=== PATIENT | male | born 1955 | race Caucasian/White ===

== ENCOUNTER 2018-02-03 17:10 | Inpatient (IN) | payer OTHER ==
[2018-02-03] MEDS ORDERED: NACL 0.9% 3 ML SYG IV (19:30)
[2018-02-03] MEDS ORDERED: ONDANSETRON 4 MG INJ IV (19:30)
[2018-02-03] MEDS ORDERED: GLUCOSE GEL 15 GRAM TUBE BUCCAL (20:30)
[2018-02-03] MEDS ORDERED: GLUCOSE GEL 15 GRAM TUBE PO ×2 (20:30)
[2018-02-03] MEDS ORDERED: DEXTROSE 50% 50 ML SYRINGE IV ×2 (20:30)
[2018-02-03] MEDS ORDERED: GLUCAGON 1 MG INJ IM (20:30)
[2018-02-03] MEDS: HYDROCODONE/APAP (5/325) TAB PO (20:39)
[2018-02-03] MEDS: FUROSEMIDE 40 MG INJ IV (20:40)
[2018-02-03] MEDS: INSULIN ASPART [NOVOLOG] 3 ML PEN SC (21:00)
[2018-02-03] MEDS: APIXABAN 5 MG TABLET PO (21:30)
[2018-02-03] MEDS: METOPROLOL 50 MG TAB PO (21:30)
[2018-02-03] MEDS: ATORVASTATIN 80 MG TAB PO (21:30)
[2018-02-03 22:35] LABS: ADD MAN DIFF? NO
[2018-02-03 22:38] LABS: BASOPHIL # 0.1 10^3/ul (0.0-0.1); BASOPHILS % 0.6 % (0.0-2.0); EOSINOPHILS # 0.3 10^3/ul (0.0-0.5); HEMATOCRIT 39.8 % (42.0-52.0); HEMOGLOBIN 13.6 g/dl (14.0-18.0); LYMPHOCYTES # 1.2 10^3/ul (0.8-2.9); LYMPHOCYTES % 8.3 % (15.0-51.0); MEAN CORPUSCULAR HEMOGLOBIN 31.1 pg (29.0-33.0); MEAN CORPUSCULAR HGB CONC 34.2 g/dl (32.0-37.0); MEAN CORPUSCULAR VOLUME 90.9 fl (82.0-101.0); MEAN PLATELET VOLUME 8.4 fl (7.4-10.4); MONOCYTES % 7.3 % (0.0-11.0); NEUTROPHIL # 11.4 10^3/ul (1.6-7.5); NEUTROPHILS % 80.8 % (39.0-77.0); PLATELET COUNT 288 10^3/UL (140-415); RED BLOOD COUNT 4.38 10^6/ul (4.70-6.10); RED CELL DISTRIBUTION WIDTH 13.6 % (11.5-14.5)
[2018-02-03 23:07] LABS: B-TYPE NATRIURETIC PEPTIDE 1110 PG/ML (0-125)
[2018-02-04 01:46] LABS: ALANINE AMINOTRANSFERASE 43 IU/L (13-69); ALBUMIN 3.5 g/dl (3.3-4.9); ALBUMIN/GLOBULIN RATIO 0.92; ALKALINE PHOSPHATASE 86 IU/L (42-121); ANION GAP 17 (8-16); ASPARTATE AMINO TRANSFERASE 28 IU/L (15-46); BILIRUBIN,INDIRECT 0.5 mg/dl (0-1.1); BILIRUBIN,TOTAL 0.5 mg/dl (0.2-1.3); BLOOD UREA NITROGEN 17 mg/dl (7-20); CALCIUM 9.4 mg/dl (8.4-10.2); CARBON DIOXIDE 28 mmol/L (21-31); CHLORIDE 91 mmol/L (97-110); CHOLESTEROL 124 mg/dl (100-200); CREATININE 0.99 mg/dl (0.61-1.24); GLUCOSE 125 mg/dl (70-220); HDL CHOLESTEROL 31 mg/dl (30-78); LDL CHOLESTEROL,CALCULATED 75 mg/dl; MAGNESIUM 1.8 mg/dl (1.7-2.5); PHOSPHORUS 4.2 mg/dl (2.5-4.9); SODIUM 132 mmol/L (135-144); TOTAL PROTEIN 7.3 g/dl (6.1-8.1); TRIGLYCERIDES 92 mg/dl (0-149)
[2018-02-04] MEDS: ACCU-CHEK XX (02:00)
[2018-02-04] MEDS: HYDROCODONE/APAP (5/325) TAB PO ×3 (02:43→16:16)
[2018-02-04] MEDS: FUROSEMIDE 40 MG INJ IV ×3 (04:17→21:12)
[2018-02-04] MEDS: PANTOPRAZOLE (EC) 40 MG TAB PO (05:42)
[2018-02-04] MEDS: ALBUTEROL/IPRATROPIUM (NEB) 3 ML AMP HHN ×2 (06:23→15:09)
[2018-02-04 07:21] LABS: ADD MAN DIFF? NO
[2018-02-04 07:25] LABS: WHITE BLOOD COUNT 11.4 10^3/ul (4.8-10.8)
[2018-02-04 07:25] LABS: BASOPHIL # 0.1 10^3/ul (0.0-0.1); EOSINOPHILS # 0.3 10^3/ul (0.0-0.5); EOSINOPHILS % 2.9 % (0.0-7.0); HEMATOCRIT 40.8 % (42.0-52.0); HEMOGLOBIN 13.7 g/dl (14.0-18.0); LYMPHOCYTES # 1.5 10^3/ul (0.8-2.9); LYMPHOCYTES % 13.2 % (15.0-51.0); MEAN CORPUSCULAR HEMOGLOBIN 30.6 pg (29.0-33.0); MEAN CORPUSCULAR HGB CONC 33.6 g/dl (32.0-37.0); MEAN CORPUSCULAR VOLUME 91.3 fl (82.0-101.0); MEAN PLATELET VOLUME 8.3 fl (7.4-10.4); MONOCYTES % 8.9 % (0.0-11.0); NEUTROPHIL # 8.4 10^3/ul (1.6-7.5); PLATELET COUNT 280 10^3/UL (140-415); RED BLOOD COUNT 4.47 10^6/ul (4.70-6.10); RED CELL DISTRIBUTION WIDTH 13.8 % (11.5-14.5)
[2018-02-04 07:49] LABS: ANION GAP 15 (8-16); BLOOD UREA NITROGEN 16 mg/dl (7-20); CALCIUM 9.4 mg/dl (8.4-10.2); CARBON DIOXIDE 29 mmol/L (21-31); CHLORIDE 92 mmol/L (97-110); CREATININE 0.99 mg/dl (0.61-1.24); GLUCOSE 112 mg/dl (70-220); MAGNESIUM 1.7 mg/dl (1.7-2.5); PHOSPHORUS 4.2 mg/dl (2.5-4.9); POTASSIUM 3.8 mmol/L (3.5-5.1); SODIUM 132 mmol/L (135-144)
[2018-02-04] MEDS: APIXABAN 5 MG TABLET PO ×2 (08:15→21:11)
[2018-02-04] MEDS: ASPIRIN 81 MG TAB PO (08:15)
[2018-02-04] MEDS: FLUTICASONE/VILANTEROL 100-25 INH (08:16)
[2018-02-04] MEDS: METOPROLOL 50 MG TAB PO ×2 (08:16→21:11)
[2018-02-04] MEDS: INSULIN ASPART [NOVOLOG] 3 ML PEN SC ×4 (08:25→21:00)
[2018-02-04] MEDS ORDERED: ENOXAPARIN 40 MG/0.4 ML SYG SC (09:00)
[2018-02-04] MEDS: ATORVASTATIN 80 MG TAB PO (21:11)
[2018-02-05] MEDS: ALBUTEROL/IPRATROPIUM (NEB) 3 ML AMP HHN ×2 (00:56→08:17)
[2018-02-05] MEDS: ACCU-CHEK XX (02:00)
[2018-02-05] MEDS: HYDROCODONE/APAP (5/325) TAB PO ×3 (02:43→15:31)
[2018-02-05] MEDS: PANTOPRAZOLE (EC) 40 MG TAB PO (04:13)
[2018-02-05] MEDS: FUROSEMIDE 40 MG INJ IV ×2 (04:13→12:08)
[2018-02-05] MEDS: INSULIN ASPART [NOVOLOG] 3 ML PEN SC ×3 (08:49→17:33)
[2018-02-05 09:07] LABS: ADD MAN DIFF? NO
[2018-02-05 09:17] LABS: WHITE BLOOD COUNT 12.8 10^3/ul (4.8-10.8)
[2018-02-05 09:17] LABS: BASOPHIL # 0.1 10^3/ul (0.0-0.1); EOSINOPHILS # 0.4 10^3/ul (0.0-0.5); HEMATOCRIT 42.3 % (42.0-52.0); HEMOGLOBIN 14.1 g/dl (14.0-18.0); LYMPHOCYTES # 1.6 10^3/ul (0.8-2.9); LYMPHOCYTES % 12.5 % (15.0-51.0); MEAN CORPUSCULAR HEMOGLOBIN 30.5 pg (29.0-33.0); MEAN CORPUSCULAR HGB CONC 33.3 g/dl (32.0-37.0); MEAN CORPUSCULAR VOLUME 91.6 fl (82.0-101.0); MEAN PLATELET VOLUME 8.4 fl (7.4-10.4); MONOCYTE # 1.1 10^3/ul (0.3-0.9); MONOCYTES % 8.3 % (0.0-11.0); NEUTROPHIL # 9.6 10^3/ul (1.6-7.5); NEUTROPHILS % 74.3 % (39.0-77.0); PLATELET COUNT 283 10^3/UL (140-415); RED BLOOD COUNT 4.62 10^6/ul (4.70-6.10); RED CELL DISTRIBUTION WIDTH 13.9 % (11.5-14.5)
[2018-02-05] MEDS: FLUTICASONE/VILANTEROL 100-25 INH (09:17)
[2018-02-05] MEDS: ASPIRIN 81 MG TAB PO (09:17)
[2018-02-05] MEDS: METOPROLOL 50 MG TAB PO (09:19)
[2018-02-05] MEDS: APIXABAN 5 MG TABLET PO (09:19)
[2018-02-05 09:40] LABS: ANION GAP 15 (8-16); BLOOD UREA NITROGEN 17 mg/dl (7-20); CALCIUM 9.6 mg/dl (8.4-10.2); CARBON DIOXIDE 31 mmol/L (21-31); CHLORIDE 91 mmol/L (97-110); CREATININE 0.98 mg/dl (0.61-1.24); GLUCOSE 160 mg/dl (70-220); POTASSIUM 3.9 mmol/L (3.5-5.1); SODIUM 133 mmol/L (135-144)
[2018-02-05 09:46] LABS: B-TYPE NATRIURETIC PEPTIDE 763 PG/ML (0-125)
== END 2018-02-05 20:50 | disposition left against medical advice (07) | DRG 292 ==
LOC: 5EC 17:10
PROVIDERS: Internal Medicine
DX: I11.0 Hypertensive heart disease with heart failure (principal); E87.1 Hypo-osmolality and hyponatremia; Z68.42 Body mass index [BMI] 45.0-49.9, adult; I50.33 Acute on chronic diastolic (congestive) heart failure; J44.9 Chronic obstructive pulmonary disease, unspecified; I48.91 Unspecified atrial fibrillation; E66.01 Morbid (severe) obesity due to excess calories; E11.9 Type 2 diabetes mellitus without complications; E78.5 Hyperlipidemia, unspecified; G89.29 Other chronic pain; M54.5 Low back pain
CPT/HCPCS: 80048; 80053; 80061; 82962; 83036; 83735; 83880; 84100; 84443; 85025; 87081; 94640; 94664

== ENCOUNTER 2018-02-26 16:16 | Emergency (ER) | payer SELFPAY, OTHER | END 2018-02-26 20:08 | disposition left against medical advice (07) | LOC: E/R 16:16 | DX: Z53.21 Procedure and treatment not carried out due to patient leaving prior to being seen by health care provider (principal) ==

== ENCOUNTER 2018-02-28 07:52 | Emergency (ER) | payer OTHER | END 2018-02-28 11:20 | disposition home or self-care (01) | LOC: E/R 07:52 | DX: I50.9 Heart failure, unspecified (principal); R06.02 Shortness of breath; R07.89 Other chest pain; R40.2142 Coma scale, eyes open, spontaneous, at arrival to emergency department; R40.2252 Coma scale, best verbal response, oriented, at arrival to emergency department; R40.2362 Coma scale, best motor response, obeys commands, at arrival to emergency department; I10 Essential (primary) hypertension; E11.9 Type 2 diabetes mellitus without complications; J44.9 Chronic obstructive pulmonary disease, unspecified; Z59.0 Homelessness | CPT/HCPCS: 71045; 93005; 99284-25 ==

== ENCOUNTER 2018-03-10 18:16 | Inpatient (IN) | payer OTHER ==
[2018-03-10] MEDS: SOD CHLORIDE 0.45% 1,000 ML IV (18:42)
[2018-03-10] MEDS ORDERED: NITROGLYCERIN (SL) 0.4 MG TAB SL (19:00)
[2018-03-10] MEDS ORDERED: morphine 2 MG INJ IV (19:00)
[2018-03-10] MEDS ORDERED: NACL 0.9% 3 ML SYG IV (19:00)
[2018-03-10] MEDS ORDERED: LORAZEPAM 2 MG INJ IV (19:00)
[2018-03-10] MEDS ORDERED: NA PHOSPHATE/BIPHOS 133 ML ENEMA PR (19:00)
[2018-03-10] MEDS ORDERED: ONDANSETRON 4 MG INJ IV (19:00)
[2018-03-10] MEDS ORDERED: hydrALAzine 20 MG INJ IV (19:00)
[2018-03-10] MEDS ORDERED: DOCUSATE SODIUM 100 MG CAP PO (19:00)
[2018-03-10] MEDS ORDERED: MAGNESIUM HYDROXIDE 30ML CUP PO (19:00)
[2018-03-10 20:04] LABS: CREATINE KINASE 40 IU/L (23-200)
[2018-03-10 20:17] LABS: TROPONIN-I < 0.012 ng/ml (0.000-0.120)
[2018-03-10 20:22] LABS: FREE T4 (FREE THYROXINE) 1.42 ng/dl (0.78-2.44)
[2018-03-10 20:32] LABS: CK INDEX 1.9; CK-MB 0.76 ng/ml (0.0-2.4)
[2018-03-10] MEDS: FAMOTIDINE 20 MG TAB PO (21:00)
[2018-03-10] MEDS: metFORMIN 500 MG TAB PO (21:00)
[2018-03-10] MEDS: ACCU-CHEK XX (21:00)
[2018-03-10] MEDS: HEPARIN 5,000 UNIT/1 ML VIAL SC (21:00)
[2018-03-10] MEDS ORDERED: HEPARIN 5,000 UNIT/0.5 ML VIAL (21:41)
[2018-03-10] MEDS ORDERED: GLUCOSE GEL 15 GRAM TUBE BUCCAL (22:00)
[2018-03-10] MEDS ORDERED: GLUCAGON 1 MG INJ IM (22:00)
[2018-03-10] MEDS ORDERED: GLUCOSE GEL 15 GRAM TUBE PO ×2 (22:00)
[2018-03-10] MEDS ORDERED: DEXTROSE 50% 50 ML SYRINGE IV ×2 (22:00)
[2018-03-10] MEDS: FLUTICASONE/VILANTEROL 200-25 INH DEVICE INH (23:00)
[2018-03-11 01:14] LABS: CREATINE KINASE 43 IU/L (23-200)
[2018-03-11] MEDS: SOD CHLORIDE 0.45% 1,000 ML IV ×2 (01:23→21:22)
[2018-03-11 01:27] LABS: CK INDEX 1.3; CK-MB 0.57 ng/ml (0.0-2.4); TROPONIN-I < 0.012 ng/ml (0.000-0.120)
[2018-03-11 05:44] LABS: ADD MAN DIFF? NO
[2018-03-11 05:46] LABS: BASOPHIL # 0.1 10^3/ul (0.0-0.1); BASOPHILS % 0.8 % (0.0-2.0); EOSINOPHILS # 0.4 10^3/ul (0.0-0.5); EOSINOPHILS % 4.5 % (0.0-7.0); HEMATOCRIT 35.7 % (42.0-52.0); HEMOGLOBIN 11.9 g/dl (14.0-18.0); LYMPHOCYTES # 0.9 10^3/ul (0.8-2.9); LYMPHOCYTES % 11.8 % (15.0-51.0); MEAN CORPUSCULAR HEMOGLOBIN 30.1 pg (29.0-33.0); MEAN CORPUSCULAR HGB CONC 33.3 g/dl (32.0-37.0); MEAN CORPUSCULAR VOLUME 90.2 fl (82.0-101.0); MEAN PLATELET VOLUME 8.4 fl (7.4-10.4); MONOCYTE # 0.5 10^3/ul (0.3-0.9); MONOCYTES % 6.5 % (0.0-11.0); NEUTROPHIL # 5.9 10^3/ul (1.6-7.5); NEUTROPHILS % 75.9 % (39.0-77.0); PLATELET COUNT 266 10^3/UL (140-415); RED BLOOD COUNT 3.96 10^6/ul (4.70-6.10); RED CELL DISTRIBUTION WIDTH 14.4 % (11.5-14.5)
[2018-03-11 05:46] LABS: WHITE BLOOD COUNT 7.8 10^3/ul (4.8-10.8)
[2018-03-11 06:14] LABS: CARBON DIOXIDE 26 mmol/L (21-31); CHLORIDE 92 mmol/L (97-110); SODIUM 132 mmol/L (135-144)
[2018-03-11 06:15] LABS: ANION GAP 14 (5-13); BLOOD UREA NITROGEN 12 mg/dl (7-20); CALCIUM 8.8 mg/dl (8.4-10.2); CHOL/HDL RATIO 4.5 RATIO; CHOLESTEROL 122 mg/dl (100-200); Estimated GFR > 60 mL/min (>60); GLUCOSE 104 mg/dl (70-220); HDL CHOLESTEROL 27 mg/dl (30-78); LDL CHOLESTEROL,CALCULATED 79 mg/dl; MAGNESIUM 1.5 mg/dl (1.7-2.5); PHOSPHORUS 4.1 mg/dl (2.5-4.9); TRIGLYCERIDES 80 mg/dl (0-149)
[2018-03-11] MEDS: ACCU-CHEK XX ×4 (07:00→21:00)
[2018-03-11] MEDS: ASPIRIN (EC) 325 MG TAB PO (08:53)
[2018-03-11] MEDS: metFORMIN 500 MG TAB PO ×3 (08:53→18:05)
[2018-03-11] MEDS: HEPARIN 5,000 UNIT/1 ML VIAL SC ×2 (08:54→21:19)
[2018-03-11] MEDS: FAMOTIDINE 20 MG TAB PO ×2 (08:54→21:16)
[2018-03-11] MEDS: FLUTICASONE/VILANTEROL 200-25 INH DEVICE INH (08:55)
[2018-03-11] MEDS: LEVOFLOXACIN 750MG/D5W (PMX) 150 ML IVPB (09:00)
[2018-03-11] MEDS: MAGNESIUM OXIDE 400 MG TAB PO ×2 (11:27→21:16)
[2018-03-11] MEDS ORDERED: HEPARIN 5,000 UNIT/0.5 ML VIAL (20:31)
[2018-03-11] MEDS: ARIPIPRAZOLE 10 MG TAB PO (21:16)
[2018-03-11] MEDS: ALBUTEROL HFA 8 GM INHALER INH (22:18)
[2018-03-12] MEDS: SOD CHLORIDE 0.45% 1,000 ML IV ×2 (00:20→10:42)
[2018-03-12] MEDS: HYDROCODONE/APAP (5/325) TAB PO ×3 (00:59→20:06)
[2018-03-12] MEDS: ALBUTEROL HFA 8 GM INHALER INH ×7 (01:40→23:00)
[2018-03-12] MEDS: ACETAMINOPHEN 325 MG TAB PO (03:33)
[2018-03-12] MEDS: ACCU-CHEK XX ×4 (07:00→20:23)
[2018-03-12] MEDS ORDERED: HEPARIN 5,000 UNIT/0.5 ML VIAL ×2 (08:18→19:43)
[2018-03-12] MEDS: metFORMIN 500 MG TAB PO ×2 (08:38→17:37)
[2018-03-12] MEDS: ASPIRIN (EC) 325 MG TAB PO (08:39)
[2018-03-12] MEDS: FAMOTIDINE 20 MG TAB PO ×3 (08:39→20:13)
[2018-03-12] MEDS: ARIPIPRAZOLE 10 MG TAB PO (08:40)
[2018-03-12] MEDS: HEPARIN 5,000 UNIT/1 ML VIAL SC ×2 (08:41→20:05)
[2018-03-12] MEDS: FLUTICASONE/VILANTEROL 200-25 INH DEVICE INH (09:00)
[2018-03-12] MEDS: ALBUTEROL/IPRATROPIUM (NEB) 3 ML AMP HHN ×2 (10:34→22:36)
[2018-03-12] MEDS: MAGNESIUM OXIDE 400 MG TAB PO ×2 (11:16→20:01)
[2018-03-12 11:48] LABS: ADD MAN DIFF? NO
[2018-03-12 11:51] LABS: BASOPHIL # 0.1 10^3/ul (0.0-0.1); EOSINOPHILS # 0.3 10^3/ul (0.0-0.5); EOSINOPHILS % 4.5 % (0.0-7.0); HEMATOCRIT 34.6 % (42.0-52.0); HEMOGLOBIN 11.5 g/dl (14.0-18.0); LYMPHOCYTES # 0.9 10^3/ul (0.8-2.9); LYMPHOCYTES % 12.6 % (15.0-51.0); MEAN CORPUSCULAR HEMOGLOBIN 29.9 pg (29.0-33.0); MEAN CORPUSCULAR HGB CONC 33.2 g/dl (32.0-37.0); MEAN CORPUSCULAR VOLUME 89.9 fl (82.0-101.0); MEAN PLATELET VOLUME 8.5 fl (7.4-10.4); MONOCYTE # 0.5 10^3/ul (0.3-0.9); MONOCYTES % 7.1 % (0.0-11.0); NEUTROPHIL # 5.4 10^3/ul (1.6-7.5); NEUTROPHILS % 74.3 % (39.0-77.0); PLATELET COUNT 247 10^3/UL (140-415); RED BLOOD COUNT 3.85 10^6/ul (4.70-6.10); RED CELL DISTRIBUTION WIDTH 14.5 % (11.5-14.5)
[2018-03-12 11:51] LABS: WHITE BLOOD COUNT 7.3 10^3/ul (4.8-10.8)
[2018-03-12 12:17] LABS: ANION GAP 10 (5-13); BLOOD UREA NITROGEN 12 mg/dl (7-20); CALCIUM 8.9 mg/dl (8.4-10.2); CARBON DIOXIDE 26 mmol/L (21-31); CHLORIDE 93 mmol/L (97-110); CREATININE 0.73 mg/dl (0.61-1.24); Estimated GFR > 60 mL/min (>60); GLUCOSE 121 mg/dl (70-220); POTASSIUM 4.2 mmol/L (3.5-5.1); SODIUM 129 mmol/L (135-144)
[2018-03-13] MEDS: ACETAMINOPHEN 325 MG TAB PO (01:59)
[2018-03-13] MEDS: ALBUTEROL HFA 8 GM INHALER INH ×5 (02:00→14:38)
[2018-03-13] MEDS: HYDROCODONE/APAP (5/325) TAB PO ×2 (03:17→12:16)
[2018-03-13] MEDS: ALBUTEROL/IPRATROPIUM (NEB) 3 ML AMP HHN (03:23)
[2018-03-13] MEDS ORDERED: LORAZEPAM 1 MG TAB (05:42)
[2018-03-13] MEDS: LORAZEPAM 1 MG TAB PO (05:49)
[2018-03-13] MEDS: ACCU-CHEK XX ×2 (07:00→11:30)
[2018-03-13] MEDS: metFORMIN 500 MG TAB PO (08:00)
[2018-03-13 08:23] LABS: ADD MAN DIFF? NO
[2018-03-13 08:30] LABS: BASOPHIL # 0.1 10^3/ul (0.0-0.1); BASOPHILS % 0.8 % (0.0-2.0); EOSINOPHILS # 0.4 10^3/ul (0.0-0.5); EOSINOPHILS % 5.9 % (0.0-7.0); HEMATOCRIT 34.3 % (42.0-52.0); HEMOGLOBIN 11.1 g/dl (14.0-18.0); LYMPHOCYTES # 0.9 10^3/ul (0.8-2.9); LYMPHOCYTES % 12.5 % (15.0-51.0); MEAN CORPUSCULAR HEMOGLOBIN 29.5 pg (29.0-33.0); MEAN CORPUSCULAR HGB CONC 32.4 g/dl (32.0-37.0); MEAN CORPUSCULAR VOLUME 91.2 fl (82.0-101.0); MEAN PLATELET VOLUME 8.7 fl (7.4-10.4); MONOCYTE # 0.7 10^3/ul (0.3-0.9); MONOCYTES % 9.5 % (0.0-11.0); NEUTROPHIL # 5.2 10^3/ul (1.6-7.5); NEUTROPHILS % 70.6 % (39.0-77.0); PLATELET COUNT 260 10^3/UL (140-415); RED BLOOD COUNT 3.76 10^6/ul (4.70-6.10); RED CELL DISTRIBUTION WIDTH 14.2 % (11.5-14.5)
[2018-03-13 08:30] LABS: WHITE BLOOD COUNT 7.4 10^3/ul (4.8-10.8)
[2018-03-13 08:49] LABS: ANION GAP 11 (5-13); BLOOD UREA NITROGEN 10 mg/dl (7-20); CALCIUM 8.7 mg/dl (8.4-10.2); CARBON DIOXIDE 27 mmol/L (21-31); CHLORIDE 93 mmol/L (97-110); CREATININE 0.76 mg/dl (0.61-1.24); Estimated GFR > 60 mL/min (>60); GLUCOSE 123 mg/dl (70-220); SODIUM 131 mmol/L (135-144)
[2018-03-13] MEDS: ASPIRIN (EC) 325 MG TAB PO (09:00)
[2018-03-13] MEDS: MAGNESIUM OXIDE 400 MG TAB PO (09:00)
[2018-03-13] MEDS: ARIPIPRAZOLE 10 MG TAB PO (09:00)
[2018-03-13] MEDS: FLUTICASONE/VILANTEROL 200-25 INH DEVICE INH (09:00)
[2018-03-13] MEDS: FAMOTIDINE 20 MG TAB PO (09:00)
[2018-03-13] MEDS: HEPARIN 5,000 UNIT/1 ML VIAL SC (09:00)
[2018-03-13] MEDS ORDERED: HEPARIN 5,000 UNIT/0.5 ML VIAL (09:28)
== END 2018-03-13 14:45 | disposition home or self-care (01) | DRG 292 ==
LOC: 5EC 18:16 → PP2 03-11 15:09 → 6WM 20:20 → 5EC 03-11 23:00
DX: I11.0 Hypertensive heart disease with heart failure (principal); J44.1 Chronic obstructive pulmonary disease with (acute) exacerbation; F20.0 Paranoid schizophrenia; I50.30 Unspecified diastolic (congestive) heart failure; I25.10 Atherosclerotic heart disease of native coronary artery without angina pectoris; I48.91 Unspecified atrial fibrillation; F99 Mental disorder, not otherwise specified; E11.9 Type 2 diabetes mellitus without complications; F10.10 Alcohol abuse, uncomplicated; Z87.891 Personal history of nicotine dependence
CPT/HCPCS: 80048; 80061; 82550; 82553; 82962; 83036; 83735; 84100; 84439; 84443; 84484; 85025; 94640; 94664